=== PATIENT | female | born 1960 | race Caucasian/White ===

== ENCOUNTER → 2020-01-17 | Outpatient (CLI) | payer OTHER ==
[2015-06-03 22:40] VITALS: BP 136/82
[~2020-01-17] MED LIST: ASPI-630 PO; CALC-507 PO; HYDR-2155 PO; LOSA1TAB19 PO
--- NOTE | 2020-01-17 15:01 | RAD ---
EXAM: Soft tissue ultrasound right groin. HISTORY: Right groin pain. Prior hernia repair. COMPARISON: None. FINDINGS: Sonography of the right inguinal region of pain was performed. This reveals only a normal-appearing right inguinal node measuring 10 x 8 x 5 mm. No hernia or other cause for pain is identified sonographically. IMPRESSION: 1. No recurrent hernia or clear cause for pain is identified sonographically. Electronically signed by: Myles Jansen MD (01/17/2020 2:58 PM) [id number]
== END ==
LOC: US 12:35
PROVIDERS: ATTEND Surgery
DX: R10.31 Right lower quadrant pain (principal)
CPT/HCPCS: 76881

== ENCOUNTER → 2021-04-28 | Outpatient (CLI) | payer OTHER ==
[2015-06-03 22:40] VITALS: BP 136/82
--- NOTE | 2021-04-28 14:16 | RAD ---
US PELVIS W/TV History: Reason: PMB, PROLAPSED UTERUS / Spl. Instructions: / History: Comparison: None Technique: Grayscale and color Doppler imaging of the pelvis was performed using transabdominal and t ransvaginal technique. Findings: The uterus measures 7.2 x 5.4 x 3.3 cm. Heterogeneous anterior myometrial lesion measures 2.0 x 1.5 x 1.4 cm with calcifications. Nabothian cysts noted. The endometrial stripe measures 4 mm. Bilateral ovaries not identified due to positioning and overlying structures. IMPRESSION: 1. Heterogeneous anterior myometrial lesion with calcifications, most likely fibroid. Electronically signed by: Raymond West DO (04/28/2021 2:14 PM) [id number]
== END ==
LOC: US 09:50
PROVIDERS: ATTEND Obstetrics & Gynecology
DX: N88.8 Other specified noninflammatory disorders of cervix uteri (principal); N95.0 Postmenopausal bleeding
CPT/HCPCS: 76830; 76856